=== PATIENT | female | born 1955 | race Caucasian/White ===

== ENCOUNTER → 2023-12-04 | Outpatient (CLI) | payer MEDICARE ==
[2023-12-04 17:36] LABS: HCT 35.6 % (37.2-46.3); HGB 11.9 g/dL (12.0-15.0); MCH 30.6 pg (27.0-32.0); MCHC 33.4 g/dL (32.0-37.0); MCV 91.5 FL (80.0-97.0); Mean Platelet Volume 10.4 FL (9.5-12.2); NRBC Per 100 WBC 0 X 10*3/uL (0.00-0.01); Platelet Count 233 X 10*3/uL (140-440); RBC 3.89 X 10*6/uL (4.10-5.20); RDW 13.7 % (11.5-14.5); WBC 4.53 X 10*3/uL (4.50-10.00)
[2023-12-04 17:49] LABS: Blood Urea Nitrogen 17.3 mg/dL (9.0-27.0); Carbon Dioxide 25.6 mmol/L (21.6-31.8); Chloride 104 mmol/L (96-109); Potassium 4.5 mmol/L (3.5-5.5); Sodium 139 mmol/L (135-145)
== END | disposition home or self-care (01) ==
LOC: LABPAT 11:01
PROVIDERS: ATTEND Internal Medicine Clinical Cardiac Electrophysiology
DX: Z01.812 Encounter for preprocedural laboratory examination (principal); I48.0 Paroxysmal atrial fibrillation
CPT/HCPCS: 36415; 80051; 82565; 84520; 85027

== ENCOUNTER 2023-12-17 09:34 | Day surgery (SDC) | payer MEDICARE ==
[2023-12-12 10:35] VITALS: BMI 25.4
[~2023-12-17 09:34] MED LIST: MIDAZOLAM 2 MG/2 ML VIAL IV PRN
[2023-12-17] MEDS: SODIUM CHLORIDE 0.9% 1,000 ML IV SCH ×2 (09:56→19:32)
[2023-12-17 10:59] LABS: Basophils % (A) 1 %; Eosinophils # (A) 0.2 k/uL (0-0.7); Eosinophils % (A) 3 %; HCT 38.4 % (34.0-46.0); HGB 12.6 gm/dL (11.4-16.0); Lymphocytes # (A) 1.4 k/uL (1.0-4.8); Lymphocytes % (A) 27 %; MCH 30.2 pg (25.0-35.0); MCHC 32.7 g/dL (31.0-37.0); MCV 92.6 fL (80.0-100.0); Mean Platelet Volume 8.2; Monocytes # (A) 0.4 k/uL (0-1.0); Monocytes % (A) 8 %; Neutrophils # (A) 3.1 k/uL (1.3-7.7); Neutrophils % (A) 59 %; Platelet Count 285 k/uL (150-450); RBC 4.15 m/uL (3.80-5.40); RDW 13.1 % (11.5-15.5); WBC 5.2 k/uL (3.8-10.6)
[2023-12-17 11:05] LABS: ALT 22 U/L (4-34); AST 29 U/L (14-36); African American GFR (CKD) >90 (>60 ml/min/1.73 sqM); Albumin 4.2 g/dL (3.5-5.0); Alkaline Phosphatase 112 U/L (38-126); Anion Gap 5 mmol/L; Blood Urea Nitrogen 15 mg/dL (7-17); Calcium 9.2 mg/dL (8.4-10.2); Carbon Dioxide 29 mmol/L (22-30); Chloride 106 mmol/L (98-107); Glucose 105 mg/dL (74-99); Non-African American GFR(CKD) >90 (>60 ml/min/1.73 sqM); Sodium 140 mmol/L (137-145); Total Bilirubin 0.9 mg/dL (0.2-1.3); Total Protein 7.5 g/dL (6.3-8.2)
[2023-12-17] MEDS ORDERED: PHENYLEPHRINE 10 MG/ML VIAL ONE (11:25)
[2023-12-17] MEDS ORDERED: HEPARIN SODIUM,PORCINE 10,000 UNIT/ML 1 ML VIAL ONE (11:25)
[2023-12-17] MEDS ORDERED: MIDAZOLAM 2 MG/2 ML VIAL ONE (11:25)
[2023-12-17] MEDS ORDERED: SUCCINYLCHOLINE CHLORIDE 200 MG/10 ML VIAL IV ONE (11:25)
[2023-12-17] MEDS ORDERED: PROPOFOL 10 MG/ML 20 ML VIAL IV ONE (11:25)
[2023-12-17] MEDS ORDERED: ISOPROTERENOL 250 MCG/1.25 ML SYR IV ONE (11:25)
[2023-12-17] MEDS ORDERED: ePHEDrine 50 MG/ML 1 ML VIAL ONE (11:25)
[2023-12-17] MEDS ORDERED: PHENYLEPHRINE-0.9% NACL SYG 1,000 MCG/10 ML SYRINGE ONE (11:25)
[2023-12-17] MEDS ORDERED: LIDOCAINE 1% INJ 10MG/ML (20 ML MDV) ONE (11:25)
[2023-12-17] MEDS ORDERED: fentaNYL (PF) 50 MCG/ML 2 ML AMP ONE (11:25)
[2023-12-17] MEDS ORDERED: KETOROLAC 15 MG/ML 1 ML VIAL ONE (11:25)
--- NOTE | 2023-12-17 11:42 | P.HPCAR ---
History of Present Illness This is Dr. Gordillo dictating an H/P on this patient The patient was interviewed and examined IMPRESSION / ASSESSMENT: Paroxysmal symptomatic atrial fibrillation Last episode a few days back lasting for 12 hours associated with dizziness Sleep apnea Normal TSH Continues to have episodes of atrial fibrillation despite abstinence from alcohol use PLAN: EP study and A-fib ablation with pulmonary vein isolation Intraprocedural heparin dose calculated with anesthesia Continue Eliquis HPI Patient continues to have episodes of atrial fibrillation despite stopping alcohol use Her last episode was about a few days back and it lasted for 12 hours and was associated with being dizzy She has documented paroxysmal atrial fibrillation with RVR She also has obstructive sleep apnea on treatment Denies any fever chills cough expectoration transfer tech ROS: No fever chills or rigors, no cough, phlegm or expectoration, no nausea, vomiting or diarrhea, no hematuria, dysuria, no musculoskeletal complaints, no strokes or seizures, no skin lesions. EXAMINATION: Blood pressure 139/72 mmHg respirations 16-17 pulse rate 70s regular Afebrile No JVD Clear lungs no rhonchi no crackles Normal heart sounds Normal groin exam no swelling REVIEW OF LABS, ECG & MEDICAL DATA White count 5.2 thousand, hemoglobin 12.6, platelet count 285,000 Sodium 140 and potassium 4.0, normal BUN 15 and creatinine 0.6, normal Liver function tests are normal TSH is normal at 1.1 Physical Exam Vitals: Vital Signs Temp Pulse Resp BP Pulse Ox 12/17/23 10:00 98.4 F 76 17 139/72 97 Intake and Output 12/16/23 12/17/23 12/17/23 22:59 06:59 14:59 Other: Weight 71.6 kg Past Medical History Past Medical History: Atrial Fibrillation, Cancer, Hyperlipidemia, Sleep Apnea/CPAP/BIPAP Additional Past Medical History / Comment(s): Breast CA History of Any Multi-Drug Resistant Organisms: None Reported Past Surgical History: Appendectomy, Breast Surgery, Section, Joint Replacement, Orthopedic Surgery, Tonsillectomy Additional Past Surgical History / Comment(s): left breast lumpectomy, milan. hip repl., Additional Past Anesthesia/Blood Transfusion Reaction / Comment(s): pt states her blood pressure dropped preop one hip surgery and then post op for the other hip surgery Past Psychological History: No Psychological Hx Reported Smoking Status: Former smoker Past Alcohol Use History: Occasional Past Drug Use History: None Reported - Past Family History Mother Additional Family Medical History / Comment(s): passed from emphysema Physical Examination Vital Signs Temp Pulse Resp BP Pulse Ox 12/17/23 10:00 98.4 F 76 17 139/72 97 Intake and Output 12/16/23 12/17/23 12/17/23 22:59 06:59 14:59 Other: Weight 71.6 kg Results 12/17/23 10:00 12/17/23 10:00 Cardiac Enzymes 12/17/23 Range/Units 10:00 AST 29 (14-36) U/L CBC 12/17/23 Range/Units 10:00 WBC 5.2 (3.8-10.6) k/uL RBC 4.15 (3.80-5.40) m/uL Hgb 12.6 (11.4-16.0) gm/dL Hct 38.4 (34.0-46.0) % Plt Count 285 (150-450) k/uL Comprehensive Metabolic Panel 12/17/23 Range/Units 10:00 Sodium 140 (137-145) mmol/L Potassium 4.0 (3.5-5.1) mmol/L Chloride 106 (98-107) mmol/L Carbon Dioxide 29 (22-30) mmol/L BUN 15 (7-17) mg/dL Creatinine 0.63 (0.52-1.04) mg/dL Glucose 105 H (74-99) mg/dL Calcium 9.2 (8.4-10.2) mg/dL AST 29 (14-36) U/L ALT 22 (4-34) U/L Alkaline Phosphatase 112 (38-126) U/L Total Protein 7.5 (6.3-8.2) g/dL Albumin 4.2 (3.5-5.0) g/dL Current Medications Generic Name Dose Route Start Last Admin Trade Name Freq PRN Reason Stop Dose Admin Hydromorphone HCl 0.5 mg 12/17/23 07:00 Hydromorphone 0.5 Mg/0.5 Ml Syringe IVP 12/17/23 23:00 Q5M PRN Phase 1 or 2 - Pain Control Sodium Chloride 1,000 mls @ 20 mls/hr 12/17/23 05:57 12/17/23 09:56 Saline 0.9% IV 01/16/24 05:58 0 mls .Q24H JAX Administration Lactated Ringer's 1,000 mls @ 20 mls/hr 12/17/23 05:57 Lactated Ringers IV 01/16/24 05:58 .Q24H JAX Clindamycin Phosphate 600 mg/ 54 mls @ 50 mls/hr 12/17/23 11:29 Dextrose/Water IVPB 12/17/23 12:33 ONCE STA Protocol Midazolam HCl 2 mg 12/17/23 07:00 Midazolam 2 Mg/2 Ml Vial IV 12/17/23 23:00 ONCE PRN Pre-Op Anxiety Intake and Output 12/16/23 12/17/23 12/17/23 22:59 06:59 14:59 Other: Weight 71.6 kg Patient Weight 12/18/23 06:59 Weight 71.6 kg 12/17/23 10:00 12/17/23 10:00
[2023-12-17] MEDS: CLINDAMYCIN 600 MG in DEXTROSE 5% IN WATER 50 ML IVPB STA (11:47)
[2023-12-17] MEDS: LIDOCAINE 1% INJ 10MG/ML (20 ML MDV) SQ ONE (12:03)
[2023-12-17] MEDS: IOPAMIDOL-370 100ML BTL INJ ONE (13:34)
[2023-12-17] MEDS: HEPARIN SOD,PORK IN 0.45% NACL 25,000 UNIT in 0.45% NACL 1 250ML.BAG IV ONE (13:34)
--- NOTE | 2023-12-17 14:20 | P.EPPROC ---
- EP Procedure Note Electrophysiology Procedure Note: PROCEDURE A. fib ablation with PVI DIAGNOSIS Paroxysmal atrial fibrillation, symptomatic, refractory to therapy RESULT No left atrial appendage mass seen on intracardiac echo, normal LV and RV function Thickened pericardium particularly posterior to the LA and base of the LV, Successful A. fib ablation/pulmonary vein isolation of all veins using cryo- ablation Complete entrance block in all 5 veins confirmed No evidence for phrenic nerve injury Esophageal deflection YES right central esophagus PROCEDURE DETAILS Written informed consent prior to procedure. Patient brought to the EP lab. General anesthesia given. Heparin administered. A city maintained above 300 seconds Both groins prepped and draped per protocol and venous sheaths placed. Esophagus intubated, circa catheter for temperature monitoring an endoscope for possible esophageal deflection. Phrenic nerve monitoring performed. Esophageal temperature monitoring performed. Esophageal deflection performed if circa catheter overlapping with the balloon or circa temperature less than 27.5C Intracardiac echocardiography performed. Pericardium evaluated. Left atrial appendage evaluated. Left atrium evaluated along with pulmonary veins Transseptal catheterization performed under fluoroscopic guidance and intr acardiac echo guidance Cryoablation sheath exchanged, balloon catheter along with achieve catheter placed in the left atrium. Pulmonary veins isolated in the following sequence: Left superior pulmonary vein followed by left inferior pulmonary vein, followed by right inferior pulmonary vein and lastly right superior pulmonary vein. Patient had a distinct right middle pulmonary vein which was isolated separately. Large ostia on the right side veins Phrenic nerve stimulation along with capture thresholds within the SVC and right superior pulmonary vein to identify the phrenic nerve proximity to the cryo- balloon. Pulmonary veins isolated and confirmed with entrance and exit block. Phrenic nerve integrity confirmed at the end of the procedure Diagnostic catheters for the high right atrium, His bundle, coronary sinus placed. LA and RA pressures recorded RA pressure: 13/05/11 LA pressure: 16/04/13 Diagnostic EP study with coronary sinus pacing and recording Baseline measurements: Sinus cycle length 836 ms, NJ interval 95 ms, QRS 84 ms and QT 380 ms AH 58 ms and HV interval 37 ms Sinus node recovery x 1 normal at 1044, 819 and 871 ms AV node Wenckebach block 300 ms Slow pathway noted with pacing from the high right atrium as well as from the coronary sinus around 310 to 320 ms No AV luis antonio reentry noted on or off Isopril High-dose Isopril infused AV node Wenckebach block at 280 ms associated with a slow pathway but no inducible SVT Venous sheaths were removed and hemostasis assured with a closure device. Patient extubated and transferred to recovery Increase procedural time During ablation multiple attempts had to be made to move the esophagus a safe distance of the from the pulmonary vein draining cryoablation, to avoid excessive thermal cooling of the esophagus This took extra time and effort to keep the esophagus a safe distance away from the cryoablation balloon. Patient had a right-sided esophagus and multiple attempts had to be made for the right superior, the right middle and the right inferior veins to move the esophagus a safe distance away The patient had a distinct right middle pulmonary vein which required a separate ablation with a cryoballoon The right superior pulmonary vein was large and each ostia was isolated separately with separate lesions The left superior pulmonary vein had a delayed isolation beyond 60 seconds and therefore additional lesions were applied to this vein PROCEDURES PERFORMED Diagnostic EP study CS pacing and recording Left and right transseptal catheterization Catheter the mapping of the tachycardia Intracardiac echocardiography Pulmonary vein isolation with transseptal and comprehensive EPS, [id number] Extended procedure duration transfer tech Drug infusion, +[id number]
[2023-12-17] MEDS: SODIUM CHLORIDE 0.9% 500 ML 500 ML IV ONE (14:21)
[2023-12-17] MEDS: ACETAMINOPHEN IV (For NPO) 1,000 MG in EMPTY BAG 1 BAG IVPB ONE (14:21)
[2023-12-17] MEDS: HYDROmorphone 0.5 MG/0.5 ML SYRINGE IVP PRN (14:34)
[2023-12-17] MEDS: ONDANSETRON 4 MG/2 ML VIAL ONE (16:02)
[2023-12-17] MEDS ORDERED: ONDANSETRON 4 MG/2 ML VIAL IVP PRN (16:02)
[2023-12-17] MEDS: ACETAMINOPHEN TAB 325 MG TAB PO PRN (18:41)
[2023-12-17] MEDS: APIXABAN 5 MG TAB PO SCH (20:23)
[2023-12-17] MEDS: LACTATED RINGERS 1,000 ML IV SCH (21:49)
[2023-12-17 21:53] VITALS: RESP 16
[2023-12-18] MEDS: LEVOTHYROXINE 50 MCG TAB PO SCH (05:45)
[2023-12-18] MEDS: PANTOPRAZOLE 40 MG TABLET PO SCH (05:45)
--- NOTE | 2023-12-18 07:37 | P.DS ---
Providers Attending physician: Llu Gordillo Primary care physician: [facility] Course: Patient is doing reasonably well, stable. She has pleuritic chest discomfort, only when she takes a deep breath in No pain when she stops breathing completely for a moment She also has a sore throat Mucosa are moist Lungs are clear on auscultation no rhonchi no crackles Heart sounds S1-S2 are normal there is no rub Blood pressure 112/73 mmHg pulse rate in the 80s sinus rhythm afebrile Groins of healed well no hematoma Impression Paroxysmal atrial fibrillation, recurrent and symptomatic Status post PVI/atrial fibrillation ablation, with successful isolation of the all pulmonary veins including the right middle pulmonary vein Plan Colchicine 1.2 mg p.o. x 1 followed by 0.6 mg p.o. daily for a week Adequate hydration Continue Eliquis uninterrupted Follow-up with Dr. Brunner in [address] Esquivel as previously scheduled Patient Condition at Discharge: Stable Plan - Discharge Summary Discharge Rx Participant: No New Discharge Prescriptions: No Action Levothyroxine Sodium [Synthroid] 50 mcg PO DAILY Apixaban [Eliquis] 5 mg PO BID Calcium Carbonate 500 mg PO DAILY dilTIAZem HCL 30 mg PO DIRECTED PRN PRN Reason: A-fib Atorvastatin [Lipitor] 10 mg PO DAILY Omeprazole 20 mg PO DAILY Discharge Medication List Apixaban [Eliquis] 5 mg PO BID 12/12/23 [History] Atorvastatin [Lipitor] 10 mg PO DAILY 12/12/23 [History] Calcium Carbonate 500 mg PO DAILY 12/12/23 [History] Levothyroxine Sodium [Synthroid] 50 mcg PO DAILY 12/12/23 [History] Omeprazole 20 mg PO DAILY 12/12/23 [History] dilTIAZem HCL 30 mg PO DIRECTED PRN 12/12/23 [History]
[2023-12-18 08:19] VITALS: BP 123/76; PULSE 80; TEMP 98.9
[2023-12-18] MEDS: ATORVASTATIN 10 MG TAB PO SCH (09:34)
[2023-12-18] MEDS: COLCHICINE 0.6 MG EACH PO ONE (09:34)
== END 2023-12-18 12:10 | disposition home or self-care (01) ==
LOC: CATHEP 09:34 → 6NMEDSUR 13:42 → CATHEP 12-18 12:10
PROVIDERS: ATTEND Internal Medicine Clinical Cardiac Electrophysiology
DX: I48.0 Paroxysmal atrial fibrillation (principal); E78.5 Hyperlipidemia, unspecified; G47.33 Obstructive sleep apnea (adult) (pediatric); F10.90 Alcohol use, unspecified, uncomplicated; Z79.01 Long term (current) use of anticoagulants; Z79.899 Other long term (current) drug therapy; Z85.3 Personal history of malignant neoplasm of breast; Z87.891 Personal history of nicotine dependence
CPT/HCPCS: 93623; 93656; 86900; 86901; 80053; 84443; 85025; 86850; C1894 ×2; C1769 ×3; C1760; C1730 ×2; C1759; C1893; C1733; C1766; J2405; J2001; J0131; J1170; Q9967; J1644; J0736

== ENCOUNTER 2024-08-05 00:45 | Emergency (ER) | payer MEDICARE ==
[2024-08-05 00:49] VITALS: RESP 18; TEMP 97.7
[2024-08-05 02:20] LABS: Basophils % (A) 0 %; Eosinophils # (A) 0.1 k/uL (0-0.7); Eosinophils % (A) 1 %; HCT 35.4 % (34.0-46.0); HGB 11.7 gm/dL (11.4-16.0); Lymphocytes # (A) 1.1 k/uL (1.0-4.8); Lymphocytes % (A) 13 %; MCH 30.3 pg (25.0-35.0); MCV 91.7 fL (80.0-100.0); Mean Platelet Volume 7.2; Monocytes # (A) 0.5 k/uL (0-1.0); Monocytes % (A) 6 %; Neutrophils # (A) 6.5 k/uL (1.3-7.7); Neutrophils % (A) 78 %; Platelet Count 222 k/uL (150-450); RBC 3.86 m/uL (3.80-5.40); RDW 13.2 % (11.5-15.5); WBC 8.2 k/uL (3.8-10.6)
[2024-08-05 02:30] LABS: ALT 30 U/L (4-34); AST 32 U/L (14-36); African American GFR (CKD) >90 (>60 ml/min/1.73 sqM); Albumin 4.1 g/dL (3.5-5.0); Alkaline Phosphatase 96 U/L (38-126); Anion Gap 5 mmol/L; Blood Urea Nitrogen 18 mg/dL (7-17); Carbon Dioxide 24 mmol/L (22-30); Chloride 105 mmol/L (98-107); Glucose 110 mg/dL (74-99); Lipase 133 U/L (23-300); Magnesium 1.6 mg/dL (1.6-2.3); Non-African American GFR(CKD) >90 (>60 ml/min/1.73 sqM); Potassium 4.1 mmol/L (3.5-5.1); Sodium 134 mmol/L (137-145); Total Bilirubin 0.5 mg/dL (0.2-1.3); Total Protein 6.9 g/dL (6.3-8.2)
[2024-08-05 02:34] LABS: INR 0.9 (<1.2); Partial Thromboplastin Time 23.9 sec (22.0-30.0); Prothrombin Time 10.4 sec (10.0-12.5)
--- NOTE | 2024-08-05 03:41 | XR ---
EXAM: XR Chest, 2 Views CLINICAL HISTORY: ITS.REASON XR Reason: Chest Pain TECHNIQUE: Frontal and lateral views of the chest. COMPARISON: No relevant prior studies available. FINDINGS: Lungs: Unremarkable. No consolidation. Pleural space: Unremarkable. No pneumothorax. Heart: Unremarkable. No cardiomegaly. Mediastinum: Unremarkable. Normal mediastinal contour. Bones/joints: Lower thoracic/T12 compression deformity with approximately 30% anterior height loss. Age-indeterminate. IMPRESSION: 1. No evidence of acute cardiopulmonary disease. 2. Lower thoracic/T12 compression deformity with approximately 30% anterior height loss. Age-indeterminate.
[2024-08-05] MEDS: ONDANSETRON 4 MG/2 ML VIAL IVP STA (04:18)
[2024-08-05] MEDS: KETOROLAC 15 MG/ML 1 ML VIAL IVP STA (04:20)
[2024-08-05] MEDS: LIDOCAINE 4% PATCH TOPICAL ONE (04:22)
--- NOTE | 2024-08-05 04:36 | ED ---
General Adult HPI - General Chief complaint: Chest Pain Stated complaint: Chest Pain Time Seen by Provider: 08/05/24 00:50 Source: patient Mode of arrival: ambulatory - History of Present Illness Initial comments: 69-year-old female who is anticoagulated due to a history of A-fib who presents emergency department reporting left scapular pain. States that the pain came on earlier today. Pain is described as a sharp shooting pain at the tip of her scapula. The pain is worse with palpation of the area and breathing. States that the pain is minimal when she sits in bed without movement. She reports that she is right-hand dominant. Denies numbness, tingling or weakness into her extremities. No fevers, chills or cough. No shortness of breath. Denies any abdominal pain. She did take a muscle relaxer however this did not seem to help her symptoms. No other alleviating, precipitating or modifying factors - Related Data Home Medications Medication Instructions Recorded Confirmed Apixaban [Eliquis] 5 mg PO BID 12/12/23 12/12/23 Atorvastatin [Lipitor] 10 mg PO DAILY 12/12/23 12/12/23 Calcium Carbonate 500 mg PO DAILY 12/12/23 12/12/23 Levothyroxine Sodium [Synthroid] 50 mcg PO DAILY 12/12/23 12/12/23 Omeprazole 20 mg PO DAILY 12/12/23 12/12/23 dilTIAZem HCL 30 mg PO DIRECTED PRN 12/12/23 12/12/23 Previous Rx's Medication Instructions Recorded Cyclobenzaprine [Flexeril] 5 mg PO HS PRN #3 tab 08/05/24 Lidocaine 5% Patch [Lidoderm] 1 patch TOPICAL DAILY #30 patch 08/05/24 Allergies Allergy/AdvReac Type Severity Reaction Status Date / Time adhesive tape Allergy Rash/Hives Verified 12/17/23 10:08 Penicillins Allergy Unknown Verified 12/17/23 10:08 Sulfa (Sulfonamide Allergy Unknown Verified 12/17/23 10:08 Antibiotics) cephalexin AdvReac Nausea & Verified 12/17/23 10:08 Vomiting codeine AdvReac Nausea & Verified 12/17/23 10:08 Vomiting Review of Systems ROS Statement: Those systems with pertinent positive or pertinent negative responses have been documented in the HPI. ROS Other: All systems not noted in ROS Statement are negative. Past Medical History Past Medical History: Atrial Fibrillation Past Surgical History: Cardiac Ablation Smoking Status: Never smoker Past Alcohol Use History: Daily Past Drug Use History: None Reported General Exam General appearance: alert, in no apparent distress Head exam: Present: atraumatic, normocephalic, normal inspection Eye exam: Present: normal appearance, PERRL, EOMI. Absent: scleral icterus, conjunctival injection, periorbital swelling ENT exam: Present: normal exam, mucous membranes moist Neck exam: Present: normal inspection. Absent: tenderness, meningismus, lymphadenopathy Respiratory exam: Present: normal lung sounds bilaterally. Absent: respiratory distress, wheezes, rales, rhonchi, stridor Cardiovascular Exam: Present: regular rate, normal rhythm, normal heart sounds. Absent: systolic murmur, diastolic murmur, rubs, gallop, clicks GI/Abdominal exam: Present: soft, normal bowel sounds. Absent: distended, tend erness, guarding, rebound, rigid Extremities exam: Present: normal inspection, full ROM, normal capillary refill. Absent: tenderness, pedal edema, joint swelling, calf tenderness Back exam: Present: tenderness (To palpation of the left posterior rib cage medial and inferior to the scapula. No appreciable step-offs) Neurological exam: Present: alert, oriented X3, CN II-XII intact Psychiatric exam: Present: normal affect, normal mood Skin exam: Present: warm, dry, intact, normal color. Absent: rash Course Vital Signs 08/05/24 08/05/24 08/05/24 00:46 01:05 05:41 Temperature 97.7 F Pulse Rate 97 82 Pulse Rate [ 89 Right Sitting Radial] Respiratory 18 18 Rate Blood Pressure 142/73 120/71 O2 Sat by Pulse 98 95 Oximetry Medical Decision Making - Medical Decision Making Was pt. sent in by a medical professional or institution (, PA, DOCENT COORDINATOR, urgent care, hospital, or [facility]...) When possible be specific @ -No Did you speak to anyone other than the patient for history (EMS, parent, family, police, friend...)? What history was obtained from this source @ -Spoke with the for history Did you review nursing and triage notes (agree or disagree)? Why? @ -I reviewed and agree with nursing and triage notes Were old charts reviewed (outside hosp., previous admission, EMS record, old EKG, old radiological studies, urgent care reports/EKG's, [facility] records)? Report findings @ -No old charts were reviewed Differential Diagnosis (chest pain, altered mental status, abdominal pain women, abdominal pain men, vaginal bleeding, weakness, fever, dyspnea, syncope, headache, dizziness, GI bleed, back pain, seizure, CVA, palpatations, mental health, musculoskeletal)? @ -Differential Back Pain: Strain, zoster, cauda equina syndrome, epidural abscess, vertebral osteomyelitis, discitis, fracture, subluxation, disc herniation, DJD, spinal stenosis, dissection, AAA, pancreatitis, peptic ulcer disease, pyelonephritis, kidney stone, this is not meant to be an all-inclusive list. EKG interpreted by me (3pts min.). @ -Yes and demonstrates sinus rhythm with a rate of 92. TN interval 144. QRS 90. QTc of 398. No acute ST segment elevations or depressions X-rays interpreted by me (1pt min.). @ -Yes and demonstrates compression fracture of T12 however patient's pain is much higher CT interpreted by me (1pt min.). @ -None done U/S interpreted by me (1pt. min.). @ -None done What testing was considered but not performed or refused? (CT, X-rays, U/S, labs)? Why? @ -None What meds were considered but not given or refused? Why? @ -None Did you discuss the management of the patient with other professionals (professionals i.e. , PA, DOCENT COORDINATOR, lab, RT, psych nurse, psych social worker, child watch attendant, teacher, administrative services officer, employment evaluator/case manager)? Give summary @ -No Was smoking cessation discussed for >3mins.? @ -No Was critical care preformed (if so, how long)? @ -No Were there social determinants of health that impacted care today? How? (Homelessness, low income, unemployed, alcoholism, drug addiction, trans portation, low edu. Level, literacy, decrease access to med. care, [facility], rehab)? @ -No Was there de-escalation of care discussed even if they declined (Discuss DNR or withdrawal of care, Hospice)? DNR status @ -No What co-morbidities impacted this encounter? (DM, HTN, Smoking, COPD, CAD, Cancer, CVA, ARF, Chemo, Hep., AIDS, mental health diagnosis, sleep apnea, morbid obesity)? @ -None Was patient admitted / discharged? Hospital course, mention meds given and route, prescriptions, significant lab abnormalities, going to OR and other pertinent info. @ -Upon arrival patient seen and evaluated in bed 10. Thorough history and physical exam was performed. IV access was established. Laboratory studies are conducted. Patient remains on continuous pulse ox and cardiac monitoring. Twelve-lead EKG was obtained. Patient was agreeable to Valium. This was provided to the patient she states that she has had some improvement in her pain. Results are discussed with the patient. She is offered further pain medications to include a Lidoderm patch and Toradol. The Valium does make her slightly nauseated and therefore she is given Zofran. Patient feels improved at this time. She is able to get up and ambulate to the bathroom. I did offer admission in order to trend her cardiac enzymes however chest pain does not sound typical. Patient refused and states that she would be more comfortable at home. I did discuss the treatment options. Patient was agreeable to a prescription for Lidoderm patches. Recommend that she follow-up with her primary care doctor in 2 to 4 days for reevaluation and to demonstrate that there is improvement in her symptoms. Return to the emergency department for any new or worsening symptoms. Patient was agreeable this plan was discharged home in stable condition Undiagnosed new problem with uncertain prognosis? @ -Yes Drug Therapy requiring intensive monitoring for toxicity (Heparin, Nitro, Insulin, Cardizem)? @ -No Were any procedures done? @ -No Diagnosis/symptom? @ -Acute left scapular pain Acute, or Chronic, or Acute on Chronic? @ -Acute Uncomplicated (without systemic symptoms) or Complicated (systemic symptoms)? @ -Complicated Side effects of treatment? @ -No Exacerbation, Progression, or Severe Exacerbation? @ -No Poses a threat to life or bodily function? How? (Chest pain, [place], [place], pneumonia, PE, COPD, DKA, ARF, appy, cholecystitis, CVA, Diverticulitis, Homicidal, Suicidal, threat to staff... and all critical care pts) @ -No - Lab Data Result diagrams: 08/05/24 02:10 08/05/24 02:10 Lab Results 08/05/24 08/05/24 08/05/24 Range/Units 02:10 02:10 02:10 WBC 8.2 (3.8-10.6) k/uL RBC 3.86 (3.80-5.40) m/uL Hgb 11.7 (11.4-16.0) gm/dL Hct 35.4 (34.0-46.0) % MCV 91.7 (80.0-100.0) fL MCH 30.3 (25.0-35.0) pg MCHC 33.0 (31.0-37.0) g/dL RDW 13.2 (11.5-15.5) % Plt Count 222 (150-450) k/uL MPV 7.2 Neutrophils % 78 % Lymphocytes % 13 % Monocytes % 6 % Eosinophils % 1 % Basophils % 0 % Neutrophils # 6.5 (1.3-7.7) k/uL Lymphocytes # 1.1 (1.0-4.8) k/uL Monocytes # 0.5 (0-1.0) k/uL Eosinophils # 0.1 (0-0.7) k/uL Basophils # 0.0 (0-0.2) k/uL PT 10.4 (10.0-12.5) sec INR 0.9 (<1.2) APTT 23.9 (22.0-30.0) sec D-Dimer 0.50 (<0.60) mg/L FEU Sodium 134 L (137-145) mmol/L Potassium 4.1 (3.5-5.1) mmol/L Chloride 105 (98-107) mmol/L Carbon Dioxide 24 (22-30) mmol/L Anion Gap 5 mmol/L BUN 18 H (7-17) mg/dL Creatinine 0.66 (0.52-1.04) mg/dL Est GFR (CKD-EPI)AfAm >90 (>60 ml/min/1.73 sqM) Est GFR (CKD-EPI)NonAf >90 (>60 ml/min/1.73 sqM) Glucose 110 H (74-99) mg/dL Calcium 9.0 (8.4-10.2) mg/dL Magnesium 1.6 (1.6-2.3) mg/dL Total Bilirubin 0.5 (0.2-1.3) mg/dL AST 32 (14-36) U/L ALT 30 (4-34) U/L Alkaline Phosphatase 96 (38-126) U/L Troponin I (0.000-0.034) ng/mL Total Protein 6.9 (6.3-8.2) g/dL Albumin 4.1 (3.5-5.0) g/dL Lipase 133 (23-300) U/L 08/05/24 Range/Units 02:10 WBC (3.8-10.6) k/uL RBC (3.80-5.40) m/uL Hgb (11.4-16.0) gm/dL Hct (34.0-46.0) % MCV (80.0-100.0) fL MCH (25.0-35.0) pg MCHC (31.0-37.0) g/dL RDW (11.5-15.5) % Plt Count (150-450) k/uL MPV Neutrophils % % Lymphocytes % % Monocytes % % Eosinophils % % Basophils % % Neutrophils # (1.3-7.7) k/uL Lymphocytes # (1.0-4.8) k/uL Monocytes # (0-1.0) k/uL Eosinophils # (0-0.7) k/uL Basophils # (0-0.2) k/uL PT (10.0-12.5) sec INR (<1.2) APTT (22.0-30.0) sec D-Dimer (<0.60) mg/L FEU Sodium (137-145) mmol/L Potassium (3.5-5.1) mmol/L Chloride (98-107) mmol/L Carbon Dioxide (22-30) mmol/L Anion Gap mmol/L BUN (7-17) mg/dL Creatinine (0.52-1.04) mg/dL Est GFR (CKD-EPI)AfAm (>60 ml/min/1.73 sqM) Est GFR (CKD-EPI)NonAf (>60 ml/min/1.73 sqM) Glucose (74-99) mg/dL Calcium (8.4-10.2) mg/dL Magnesium (1.6-2.3) mg/dL Total Bilirubin (0.2-1.3) mg/dL AST (14-36) U/L ALT (4-34) U/L Alkaline Phosphatase (38-126) U/L Troponin I <0.012 (0.000-0.034) ng/mL Total Protein (6.3-8.2) g/dL Albumin (3.5-5.0) g/dL Lipase (23-300) U/L Disposition Clinical Impression: Pain of left scapula Disposition: HOME SELF-CARE Condition: Stable Instructions (If sedation given, give patient instructions): Shoulder Pain (ED) Additional Instructions: Please wear the patch for 12 hours at a time. You may take Motrin for the next 2 to 3 days to help assist with your pain however I do not recommend it any longer than that due to your Eliquis use. Follow-up with your doctor in 2 to 4 days for reevaluation. Use a heating pad. No heavy lifting. Return should you have any new or worsening symptoms Prescriptions: Cyclobenzaprine [Flexeril] 5 mg PO HS PRN #3 tab PRN Reason: Muscle Spasm Lidocaine 5% Patch [Lidoderm] 1 patch TOPICAL DAILY #30 patch Is patient prescribed a controlled substance at d/c from ED?: No Referrals: Ottoniel Esquivel MD [Primary Care Provider] - 1-2 days Time of Disposition: 05:20
[2024-08-05 05:44] VITALS: BP 120/71; PULSE 82
== END 2024-08-05 05:47 | disposition home or self-care (01) ==
LOC: EC 00:45
DX: M25.512 Pain in left shoulder (principal); Z91.09 Other allergy status, other than to drugs and biological substances; Z88.0 Allergy status to penicillin; Z88.2 Allergy status to sulfonamides; Z88.1 Allergy status to other antibiotic agents; Z88.5 Allergy status to narcotic agent
CPT/HCPCS: 36415; 93005; 85379; 80053; 83690; 83735; 84484; 85025; 85610; 85730; 71046; 99285; 96374; 96375 ×2; J3360; J2405; J1885

== ENCOUNTER → 2024-12-23 | Outpatient (CLI) | payer MEDICARE ==
[2024-12-23 12:56] LABS: Prothrombin Time 11.1 sec (10.0-12.5)
--- NOTE | 2024-12-23 13:16 | XR ---
EXAMINATION TYPE: XR chest 2V DATE OF EXAM: 12/23/2024 12:23 PM COMPARISON: Chest radiographs from 08/05/2024 TECHNIQUE: XR chest 2V Frontal and lateral views of the chest. CLINICAL INDICATION:Female, 69 years old with history of Z01.818; FINDINGS: Lungs/Pleura: There is no evidence of pleural effusion, focal consolidation, or pneumothorax. Pulmonary vascularity: Unremarkable. Heart/mediastinum: Cardiomediastinal silhouette is unremarkable. Atherosclerotic calcifications are seen in the aorta. Musculoskeletal: No acute osseous pathology. IMPRESSION: No acute cardiopulmonary disease/process. [facility], , 12/23/2024 1:14 PM
[2024-12-23 13:43] LABS: Appearance,Urine Clear (Clear); Bacteria,Urine Rare /hpf; Bilirubin,Urine Negative (Negative); Blood,Urine Negative (Negative); Color,Urine Colorless; Glucose,Urine (UA) Negative (Negative); Ketones,Urine Negative (Negative); Leukocyte Esterase,Urine Moderate (Negative); Nitrite,Urine Negative (Negative); PH, Urine 6.5 (5.0-8.0); Protein,Urine Negative (Negative); Specific Gravity,Urine 1.006 (1.001-1.035); Squamous Epithelial Cell,Urine 5 /hpf (0-4); Urobilinogen,Urine <2.0 mg/dL (<2.0); WBC,Urine 3 /hpf (0-5)
[2024-12-23 15:21] LABS: BUN/Creat Ratio 22.43 Ratio (12.00-20.00); Blood Urea Nitrogen 15.7 mg/dL (9.0-27.0); Calcium 9.7 mg/dL (8.7-10.3); Carbon Dioxide 25.3 mmol/L (21.6-31.8); Chloride 97 mmol/L (96-109); Glucose 110 mg/dL (70-110); Potassium 4.4 mmol/L (3.5-5.5); Sodium 132 mmol/L (135-145)
[2024-12-23 16:05] LABS: Basophils # (A) 0.03 X 10*3/uL (0.00-0.10); Basophils % (A) 0.7 %; Eosinophils # (A) 0.09 X 10*3/uL (0.04-0.35); Eosinophils % (A) 2.2 %; HCT 37.7 % (37.2-46.3); HGB 12.5 g/dL (12.0-15.0); Lymphocytes # (A) 1.36 X 10*3/uL (0.90-5.00); Lymphocytes % (A) 33.9 %; MCHC 33.2 g/dL (32.0-37.0); MCV 90.4 FL (80.0-97.0); Mean Platelet Volume 9.3 FL (9.5-12.2); Monocytes # (A) 0.44 X 10*3/uL (0.20-1.00); NRBC Per 100 WBC 0 X 10*3/uL (0.00-0.01); Neutrophils # (A) 2.07 X 10*3/uL (1.80-7.70); Neutrophils % (A) 51.7 %; Platelet Count 317 X 10*3/uL (140-440); RBC 4.17 X 10*6/uL (4.10-5.20); RDW 13.2 % (11.5-14.5); WBC 4.01 X 10*3/uL (4.50-10.00)
== END | disposition home or self-care (01) ==
LOC: LABPAT 11:18
PROVIDERS: ATTEND Orthopaedic Surgery Orthopaedic Surgery of the Spine
DX: Z01.818 Encounter for other preprocedural examination (principal); Z22.322 Carrier or suspected carrier of Methicillin resistant Staphylococcus aureus; S22.050A Wedge compression fracture of T5-T6 vertebra, initial encounter for closed fracture
CPT/HCPCS: 71046; 80048; 81001; 85025; 85610; 85730; 87070; 93005

== ENCOUNTER 2025-01-04 06:17 | Day surgery (SDC) | payer MEDICARE ==
[2024-12-31 14:32] VITALS: BMI 25.8
[2025-01-04] MEDS ORDERED: HYDROmorphone 0.5 MG/0.5 ML SYRINGE IVP PRN ×2 (07:08→08:36)
[2025-01-04] MEDS: IV FLUID CONTINUATION 1,000 ML IV ONE (07:10)
[2025-01-04] MEDS: MIDAZOLAM 2 MG/2 ML VIAL IV PRN (07:21)
[2025-01-04 07:22] LABS: Glucose,Whole Blood 116 mg/dL (70-110)
[2025-01-04] MEDS: LACTATED RINGERS 1,000 ML IV SCH (07:23)
[2025-01-04] MEDS: ONDANSETRON 4 MG/2 ML VIAL IVP ONE (07:24)
[2025-01-04] MEDS: DEXAMETHASONE SOD PHOSPHATE 4 MG/ML 1 ML VIAL IV ONE (07:24)
[2025-01-04] MEDS ORDERED: SUCCINYLCHOLINE CHLORIDE 200 MG/10 ML VIAL IV ONE (07:25)
[2025-01-04] MEDS ORDERED: MIDAZOLAM 2 MG/2 ML VIAL ONE (07:25)
[2025-01-04] MEDS ORDERED: LIDOCAINE 4% LTA KIT (4 ML) TOPICAL ONE (07:25)
[2025-01-04] MEDS: FAMOTIDINE 20 MG/2 ML VIAL IV STA (07:25)
[2025-01-04] MEDS ORDERED: PROPOFOL 10 MG/ML 20 ML VIAL IV ONE (07:25)
[2025-01-04] MEDS ORDERED: LIDOCAINE 1% INJ 10MG/ML (20 ML MDV) ONE (07:25)
[2025-01-04] MEDS ORDERED: fentaNYL (PF) 50 MCG/ML 2 ML AMP ONE (07:25)
[2025-01-04] MEDS: ceFAZolin 2 GM in DEXTROSE 5% IN WATER 50 ML IVPB PRN (07:30)
[2025-01-04] MEDS: LIDOCAINE 1%-EPI 1:100,000 20 ML VIAL SQ ONE (07:59)
[2025-01-04] MEDS: IOPAMIDOL M200 10 ML VIAL MISCELLANE ONE (08:00)
[2025-01-04 08:36] VITALS: TEMP 97
[2025-01-04] MEDS ORDERED: HYDROcodone/APAP 5-325MG 1 EACH TAB PO PRN (08:36)
[2025-01-04] MEDS ORDERED: BENZOCAINE/MENTHOL LOZENG 1 EACH LOZENGE MUCOUS MEM PRN (08:36)
[2025-01-04] MEDS ORDERED: IBUPROFEN 600 MG TAB PO PRN (08:37)
[2025-01-04] MEDS ORDERED: ONDANSETRON 4 MG/2 ML VIAL IVP PRN (08:37)
[2025-01-04] MEDS ORDERED: ACETAMINOPHEN TAB 500 MG TAB PO PRN (08:37)
[2025-01-04] MEDS ORDERED: KETOROLAC 15 MG/ML 1 ML VIAL IVP PRN (08:37)
--- NOTE | 2025-01-04 08:43 | P.OP ---
Date of Procedure: 01/04/25 Preoperative Diagnosis: T6 traumatic compression fracture, subacute, failed conservative treatment Postoperative Diagnosis: Same Anesthesia: GETA Pathology: other (T6 vertebral body drillings to pathology) Condition: stable Disposition: PACU Description of Procedure: BRIEF OPERATIVE NOTE Preoperative Diagnosis: T6 traumatic compression fracture, subacute, failed conservative treatment Postoperative Diagnosis: Same Procedure: Kyphoplasty of T6 Vertebral body biopsy of T6 Use of biplanar fluoroscopic guidance Surgeon: Dr. Sheikh [employer]: dermatology physician assistant Anesthesia: General anesthesia Estimated blood loss: Less than 10 mL Specimen: T6 vertebral body biopsy sent to pathology in formalin Complications: None apparent Components implanted: Bone cement approximately 6 cc Disposition: To recovery room in good stable condition. OPERATIVE INDICATIONS The patient has been having issues in their back ever since sustaining an injury. She has been found to have a fracture at T6 vertebral body with approximately 30% height loss. She is having significant pain with this along the midline and across the top of her mid back towards her shoulder blades particularly to the right. She was not having shortness of breath. She was not having neurologic loss. She was found to have compression deformity and att empted conservative treatment with bracing. Despite this she was having persistent pain and debility. The patient has been through conservative treatment. They attempted conservative care with bracing however they're not having any benefit despite brace use. They continue to have significant pain and debility due to their fracture. We discussed various treatment options including surgery, and the patient wishes to proceed with surgery We discussed the risk, patient's alternatives and benefits of surgery including but not limited to, risk of bleeding risk of infection, risk of need for further surgery, risk of decreased, loss of motion, loss of function, cement extravasation, nerve damage, paralysis, heart attack, blindness and . OPERATIVE SUMMARY After discussing all the risks, patient alternatives and benefits at length, the patient elected to proceed with surgical intervention, signed informed consent, and presented for their procedure. The patient was seen and examined in the preoperative holding area and the surgical site was marked. The patient was given antibiotics and brought to the operating room. The patient was sedated and intubated by anesthesia in standard fashion. The patient was positioned on to the operating room table in a prone position on the appropriate well-padded and well molded bilateral chest rolls. We were careful to pad any bony prominences and pressure points. We were careful to maintain the patient's cervical spine and good neutral alignment and position throughout. We used 2 C-arm machines to establish biplanar fluoroscopic guidance in AP and lateral positions. We were able to localize the fractures appropriately. The patient was prepped and draped in a normal standard fashion. An appropriate timeout and keystone protocol performed. We were able to proceed with the surgery. The local wound area was infiltrated with local anesthetic bilaterally at T6. An incision was made over the lateral aspect of the pedicle over the appropriate levels with a small 2 mm stab incision on the right side. Intraoperative fluoroscopy was taken which showed a marker at the appropriate level. With the appropriate level positively confirmed, I was able to position a sharp trocar over the lateral aspect of the pedicle. As able to advance the trocar into the pedicle and into the posterior aspect of vertebral body being careful to avoid penetration cephalad caudad or medially. The trocar was placed appropriately into the posterior aspect of vertebral body at the appropriate levels. This was confirmed with C-arm guidance. With the trocar intact I was then able to take a bone biopsy with a biopsy punch or a bony drill. The biopsy specimen was passed off to be sent to pathology in formalin. I was then able to place the kyphoplasty balloon within the vertebral body. The position was checked on C-arm. I was able to inflate the balloon under low pressure and visualization with C-arm. The balloon was well enclosed within the vertebral body. The cement was prepared. With the cement at appropriate working condition the balloons were deflated and removed. I was able to place bony cement with trocar with the cement delivery device under low pressure. It had good fill within the vertebral body of T6. There was good fill across the midline particularly at the inferior endplate. The cement extended into the v ertebral body globally. There is no evidence of any extravasation of the cement posteriorly toward the canal. The cement was well contained at the appropriate levels. The cement was allowed to cure appropriately. The trochars removed and final images were taken on C-arm. This showed the cement at the appropriate levels of T6. We were able to proceed with closure. The wound was cleaned and dried and dressed with the appropriate dressing. The drapes were broken down. The patient was gently rolled back onto their hospital bed being careful to maintain their cervical spine and good neutral alignment and position. They were woken up by anesthesia, extubated, and brought to the recovery room in good stable condition. The patient will be admitted to the hospital for observation and for appropriate postoperative care, medical management and monitoring. We will continue to follow them closely about the postoperative course.
[2025-01-04] MEDS ORDERED: SODIUM CHLORIDE 0.9% 1,000 ML IV SCH (08:45)
[2025-01-04] MEDS: traMADol 50 MG TAB PO PRN (09:19)
[2025-01-04 09:32] VITALS: BP 150/86; PULSE 89; RESP 16
--- NOTE | 2025-01-04 12:34 | FL ---
Fluoroscopy INDICATION: Pain, vertebroplasty FINDINGS: Fluoroscopy time: 47 seconds. Total dose area product (DAP) in uGy*m?, mGy*cm? (or similar): [id number] Images obtained: 3. Images document vertebroplasty IMPRESSION: 1. Documentation of fluoroscopy. [facility], , 01/04/2025 12:32 PM
--- NOTE | 2025-01-04 12:35 | XR ---
Fluoroscopy INDICATION: Pain, vertebroplasty FINDINGS: For both C-arms utilized Fluoroscopy time: 47 seconds. Total dose area product (DAP) in uGy*m?, mGy*cm? (or similar): 4.71687 Images obtained: 3. Images document vertebroplasty IMPRESSION: 1. Documentation of fluoroscopy. [facility], , 01/04/2025 12:33 PM
== END 2025-01-04 10:08 | disposition home or self-care (01) ==
LOC: OR 06:17
PROVIDERS: ATTEND Orthopaedic Surgery Orthopaedic Surgery of the Spine
DX: S22.050A Wedge compression fracture of T5-T6 vertebra, initial encounter for closed fracture (principal); M81.0 Age-related osteoporosis without current pathological fracture; I48.91 Unspecified atrial fibrillation; E78.5 Hyperlipidemia, unspecified; G47.33 Obstructive sleep apnea (adult) (pediatric); R00.2 Palpitations; E07.9 Disorder of thyroid, unspecified; K21.9 Gastro-esophageal reflux disease without esophagitis; S22.080A Wedge compression fracture of T11-T12 vertebra, initial encounter for closed fracture; M47.22 Other spondylosis with radiculopathy, cervical region; M25.78 Osteophyte, vertebrae; Z79.890 Hormone replacement therapy; Z79.1 Long term (current) use of non-steroidal anti-inflammatories (NSAID); Z79.01 Long term (current) use of anticoagulants; Z79.899 Other long term (current) drug therapy; Z87.891 Personal history of nicotine dependence; Z88.1 Allergy status to other antibiotic agents; Z88.0 Allergy status to penicillin; Z88.2 Allergy status to sulfonamides; Z91.048 Other nonmedicinal substance allergy status; X58.XXXA Exposure to other specified factors, initial encounter
CPT/HCPCS: 22513; 20225; 72070; C1713; J2250; J0330; J1100; J0690; J2405; J2003; J3010; J3490; J2704; Q9966